=== PATIENT | female | born 1955 | race Caucasian/White ===

== ENCOUNTER 2021-10-27 16:38 | Emergency (ER) | payer MEDICARE ==
[~2021-10-27] VITALS: Ht 167.6 cm; Wt 87.7 kg
[~2021-10-27 16:38] MED LIST: AMOXIL500 M1 OR; DARVOCET-N 100100 MG OR; FLEXERIL OR; LORTAB 5 OR; NAPROSYN500 MG PO; NO MEDS
[2021-10-27] MEDS ORDERED: NAPROXEN500 MG PO (18:17)
[2021-10-27 18:20] VITALS: BP 119/74
== END 2021-10-27 18:30 | disposition home or self-care (01) ==
LOC: ED 16:38
DX: S93.601A Unspecified sprain of right foot, initial encounter (principal); S83.91XA Sprain of unspecified site of right knee, initial encounter; I10 Essential (primary) hypertension; E78.5 Hyperlipidemia, unspecified; W01.0XXA Fall on same level from slipping, tripping and stumbling without subsequent striking against object, initial encounter; Y92.009 Unspecified place in unspecified non-institutional (private) residence as the place of occurrence of the external cause